=== PATIENT | female | born 1985 | race Caucasian/White ===

== ENCOUNTER 2022-08-12 23:27 | Emergency (ER) | payer MEDICAID ==
[2022-08-12] MEDS ORDERED: LIDOCAINE-EPINEPH-TETRACAINE 3 ML SYRINGE TOP STA (23:48)
[2022-08-13 00:43] LABS: BASOPHILS # (AUTO) 0.1 10^3/uL (0.0-0.1); BASOPHILS % (AUTO) 0.8 %; BILIRUBIN,URINE NEGATIVE (NEGATIVE); EOSINOPHILS # (AUTO) 0.2 10^3/uL (0.0-0.7); EOSINOPHILS % (AUTO) 1.4 %; GLUCOSE, URINE (UA) NEGATIVE (NEGATIVE); HCT - HEMATOCRIT 44.1 % (37.0-47.0); KETONES,URINE (UA) NEGATIVE (NEGATIVE); LEUKOCYTE ESTERASE, URINE NEGATIVE (NEGATIVE); LYMPHOCYTES # (AUTO) 2.3 10^3/uL (1.5-3.5); LYMPHOCYTES % (AUTO) 20.2 %; MEAN CORPUSCULAR HEMOGLOBIN 30.4 pg (27.0-31.0); MEAN CORPUSCULAR VOLUME 89.3 fL (81.0-99.0); MEAN PLATELET VOLUME 9.5 fL (7.9-10.8); MONOCYTES # (AUTO) 0.5 10^3/uL (0.0-1.0); MONOCYTES % (AUTO) 4.6 %; NEUTROPHILS # (AUTO) 8.4 10^3/uL (1.5-6.6); NEUTROPHILS % (AUTO) 72.8 %; NITRITE,URINE NEGATIVE (NEGATIVE); OCCULT BLOOD,URINE NEGATIVE (NEGATIVE); PLT - PLATELET COUNT 316 10^3/uL (130-450); PROTEIN,URINE NEGATIVE (NEGATIVE); RED BLOOD COUNT 4.94 10^6/uL (4.20-5.40); UROBILINOGEN,URINE 0.2 (NORMAL) E.U./dL (NORMAL); WHITE BLOOD COUNT 11.5 x10^3/uL (4.8-10.8)
[2022-08-13 00:51] LABS: CALCIUM 9.1 mg/dL (8.5-10.3); CREATININE 0.7 mg/dL (0.4-1.0); POTASSIUM 3.7 mmol/L (3.5-5.0)
--- NOTE | 2022-08-13 00:52 | CT Report ---
PROCEDURE: HEAD WO INDICATIONS: head injury TECHNIQUE: Noncontrast 4.5 mm thick angled axial sections acquired from the foramen magnum to the vertex. For r adiation dose reduction, the following was used: automated exposure control, adjustment of mA and/or kV according to patient size. COMPARISON: None. FINDINGS: Image quality: Excellent. CSF spaces: Basal cisterns are patent. No extra-axial fluid collections. Ventricles are normal in size and shape. Brain: No midline shift. No intracranial masses or hemorrhage. Juan-white matter interface is norm al. Skull and face: Calvarium and visualized facial bones are intact, without suspicious lesions. Sinuses: Visualized sinuses and mastoids are clear. IMPRESSION: No trauma found, normal for age. Reviewed by: Boone Galloway MD on 08/13/2022 12:50 AM [facility] Approved by: Boone Galloway MD on 08/13/2022 12:50 AM [facility] Station ID: [id number]
[2022-08-13 00:56] LABS: CLARITY,URINE CLEAR (CLEAR); HCG UR QUAL NEGATIVE
[2022-08-13] MEDS ORDERED: ACETAMINOPHEN 325 MG TABLET PO STA (01:21)
--- NOTE | 2022-08-13 01:55 | ED Physician Documentation ---
PD HPI HEAD INJURY - Stated complaint Stated Complaint: GLF - Chief complaint Chief Complaint: Laceration - History obtained from History obtained from: Patient - Additional information Additional information: Patient is a 36-year-old presenting for evaluation after a syncopal episode. She had been laying down And her partner woke her up for dinner. She got up and walked to the kitchen and started feeling dizzy and had a syncopal event. She did hit Her head on the floor and sustained a laceration. Per her partner who was at the bedside, she was out for less than a minute. There is no observed seizure-like activity. She did not bite her tongue or have loss of bladder. Patient reports that this is happened to her in the past and is related to dehydration.She says that she has not had much to eat or drink today. She does admit toAlcohol use this evening with around 5 drinks. She says that recently she has had increased alcohol use with 4-5 drinks daily.Her last tetanus was a year ago. She denies fever, chest pain, difficulty breathing, abdominal pain, vomiting or diarrhea.She does not take a blood thinner.She denies concerns for . Review of Systems Constitutional: denies: Fever Nose: denies: Congestion Cardiac: denies: Chest pain / pressure Respiratory: denies: Dyspnea Skin: reports: Laceration (s) Neurologic: reports: Syncope, Head injury PD PAST MEDICAL HISTORY - Past Medical History Past Medical History: Yes Cardiovascular: Hypertension - Past Surgical History Past Surgical History: Yes General: Appendectomy, Other - Present Medications Home Medications: Ambulatory Orders Medication Instructions Recorded Confirmed Lisinopril [Zestril] 20 mg PO DAILY 08/13/22 08/13/22 - Allergies Allergies/Adverse Reactions: Allergies Allergy/AdvReac Type Severity Reaction Status Date / Time No Known Drug Allergies Allergy Verified 08/12/22 23:36 - Social History Does the pt smoke?: Yes Smoking Status: Current every day smoker Does the pt drink ETOH?: Yes ETOH Use: Wine, Liquor Does the pt have substance abuse?: Yes Substance Use and Type: Cocaine/Crack - Immunizations Immunizations are current?: Yes - POLST Patient has POLST: No PD ED PE NORMAL - General General: Alert and oriented X 3, No acute distress, Well developed/nourished - HEENT HEENT: PERRL, EOMI, Ears normal, Moist mucous membranes, Pharynx benign, Other (2 cm right parietal scalp laceration) - Neck Neck: Supple, no meningeal sign, No bony TTP, C-Spine cleared by NEXUS criteria (Patient is not clinically intoxicated) - Cardiac Cardiac: RRR, No murmur - Respiratory Respiratory: No respiratory distress, Clear bilaterally - Abdomen Abdomen: Normal bowel sounds, Soft, Non tender - Back Back: No spinal TTP - Derm Derm: Warm and dry - Extremities Extremities: No deformity - Neuro Neuro: Alert and oriented X 3, special forces specialist 2-12 intact, No motor deficit, No sensory deficit, Normal speech Eye Opening: Spontaneous Motor: Obeys Commands Verbal: Oriented GCS Score: 15 Results - Vitals Vitals: Vital Signs - 24 hr 08/12/22 08/12/22 08/13/22 23:36 23:43 00:33 Temperature 36.5 C 36.5 C Heart Rate 86 86 85 Respiratory 16 16 19 Rate Blood Pressure 122/82 H 122/82 H 124/83 H O2 Saturation 98 98 97 08/13/22 02:10 Temperature 37.1 C Heart Rate 85 Respiratory 85 H Rate Blood Pressure 129/94 H O2 Saturation 99 Oxygen O2 Source Room air - EKG (time done) 2343 Rate: Rate (enter#) (75) Rhythm: NSR [place]: Normal Ischemia: No: ST elevation c/w ischemia Compare to prior EKG: Old EKG unavailable - Labs Labs: Laboratory Tests 08/13/22 08/13/22 08/13/22 00:36 00:36 00:36 WBC 11.5 H RBC 4.94 Hgb 15.0 Hct 44.1 MCV 89.3 MCH 30.4 MCHC 34.0 RDW 14.0 Plt Count 316 MPV 9.5 Neut # (Auto) 8.4 H Lymph # (Auto) 2.3 [place] # (Auto) 0.5 Eos # (Auto) 0.2 Baso # (Auto) 0.1 Absolute Nucleated RBC 0.00 Nucleated RBC % 0.0 Sodium 138 Potassium 3.7 Chloride 101 Carbon Dioxide 24 Anion Gap 13.0 BUN 11 Creatinine 0.7 Estimated GFR (MDRD) 95 Glucose 81 Calcium 9.1 Urine Color YELLOW Urine Clarity CLEAR Urine pH 6.0 Ur Specific [place] 1.010 Urine Protein NEGATIVE Urine Glucose (UA) NEGATIVE Urine Ketones NEGATIVE Urine Occult Blood NEGATIVE Urine Nitrite NEGATIVE Urine Bilirubin NEGATIVE Urine Urobilinogen 0.2 (NORMAL) Ur Leukocyte Esterase NEGATIVE Ur Microscopic Review NOT INDICATED Urine Culture Comments NOT INDICATED Urine HCG, Qual NEGATIVE Procedures - Laceration (location) Right parietal scalp Length in cm: 2 Wound type: Linear, Clean Anesthesia: LET Wound preparation: Hibiclens, Irrigated copiously NS Skin layer closure: [place] (4) Other: Patient tolerated well, No complications, Tetanus UTD PD MEDICAL DECISION MAKING - ED course Complexity details: reviewed results, re-evaluated patient, d/w patient, d/w family ED course: Patient presenting for evaluation after syncopal event and head injury with scalp laceration. Head CT is negative for acute findings. Her scalp laceration was stapled without issue. Labs are unrevealing. Patient feels better after IV fluids and is able to ambulate with a steady gait. Her speech is clear. Although she admits to alcohol use today she is clinically not intoxicated. Patient has a partner here with her And appears appropriate for discharge. Patient counseled on wound care instructions, need to return for staple remover as well as concerning symptoms to return for. Departure - Departure Disposition: 01 Home, Self Care Clinical Impression: Syncope and collapse, Head injury, Scalp laceration Condition: Stable Instructions: ED Laceration Scalp Stitch Or Stap, ED Fainting Unkn Cause Comments: You were evaluated After a fainting episode. You did strike your head and a CT scan was performed which is negative for internal injuries.You have a laceration to the right side of your scalp which was closed with 4 jh. These will need to be removed in 1 week on August 19. You can return to the ER Or walk- in clinic. Please make sure to stay hydrated and I would encourage you to cut down on your alcohol use. Please have close follow-up with your primary care doctor. Please return to the ER with any concerning symptoms. Discharge Date/Time: 08/13/22 02:25
[2022-08-13 02:13] VITALS: BP 129/94
== END 2022-08-13 02:25 | disposition home or self-care (01) ==
LOC: ED 23:27
DX: S09.90XA Unspecified injury of head, initial encounter (principal); S01.01XA Laceration without foreign body of scalp, initial encounter; X58.XXXA Exposure to other specified factors, initial encounter; Y93.89 Activity, other specified; R55 Syncope and collapse; F17.200 Nicotine dependence, unspecified, uncomplicated
CPT/HCPCS: 12001; 36415; 70450; 80048; 81003; 81025; 85025; 93005; 99284; A9270; 81001; 87086

== ENCOUNTER → 2022-08-12 | Outpatient (CLI) | payer MEDICAID | END | disposition critical access hospital (66) | LOC: EMS 23:03 | DX: R55 Syncope and collapse (principal); R51.9 Headache, unspecified; E16.2 Hypoglycemia, unspecified; Z72.89 Other problems related to lifestyle | CPT/HCPCS: A0425; A0429; A0999 ==